=== PATIENT | male | born 1990 | race African-American/Black ===

== ENCOUNTER 2017-01-23 17:18 | Emergency (ER) | payer MEDICAID, OTHER ==
[~2017-01-23] VITALS: Ht 180.3 cm; Wt 79.4 kg
[~2017-01-23 17:18] MED LIST: CYCLOBENZAPRINE10 M7 PO; KEPPRA1000 MG PO; RYTHMOL225 MG PO
[2017-01-23 18:19] VITALS: BP 153/81
--- NOTE | 2017-01-23 19:18 | NUR ---
PT TAKEN TO BED 1
--- NOTE | 2017-01-23 19:22 | NUR ---
Dr. Rodrigues evaluating patient at bedside.
[2017-01-23] MEDS ORDERED: NACL 0.9% 1,000 ML IV SCH (19:27)
[2017-01-23] MEDS ORDERED: ONDANSETRON 4 MG/2 ML VIAL IVP ONE (19:30)
[2017-01-23] MEDS ORDERED: HYDROmorphone 1 MG/ML AMP IVP ONE ×2 (19:40→21:15)
[2017-01-23] MEDS ORDERED: HYDROmorphone 1 MG/ML AMP ONE (19:42)
--- NOTE | 2017-01-23 19:43 | NUR ---
PT TAKEN TO CT
--- NOTE | 2017-01-23 19:45 | NUR ---
PATIENT PRESENTS TO ED WITH LBP . PT STATES HE HAS HAD THE SHARP, CONSTANT PAIN SINCE THIS MORNING . DENIES N/V/D; SKIN IS PINK/WARM/DRY; AAOX4 WITH EVEN AND STEADY GAIT; LUNGS CLEAR BL; HR EVEN AND REGULAR; PT DENIES ANY FEVER, CP, SOB, OR COUGH AT THIS TIME; PATIENT STATES PAIN OF 10/10 AT THIS TIME; VSS; PATIENT POSITIONED FOR COMFORT; HOB ELEVATED; BEDRAILS UP X2; BED DOWN. ER MD MADE AWARE OF PT STATUS.
[2017-01-23] MEDS ORDERED: KCL 20 MEQ/WATER INJ PREMIX 200 ML IV ONE (20:20)
--- NOTE | 2017-01-23 20:51 | NUR ---
Patient appears to be resting comfortably in bed. Vital Signs within normal limits. Respirations even and unlabored.
--- NOTE | 2017-01-23 22:54 | NUR ---
PT GIVEN ORANGE JUICE. RESTING COMFORTABLY IN BED. REPORTING NO PAIN AT THIS TIME. WILL CONTINUE TO MONITOR
[2017-01-23 23:13] VITALS: BP 133/90
--- NOTE | 2017-01-23 23:13 | NUR ---
Patient discharged with v/s stable. Written and verbal after care instructions given and explained. Patient alert, oriented and verbalized understanding of instructions. Ambulatory with steady gait. All questions addressed prior to discharge. ID band removed. Patient advised to follow up with PMD. Rx of DOXYCYCLINE 100MG PO BID, TYLENOL WITH CODEINE NO.3 AND ZOFRAN given. Patient educated on indication of medication including possible reaction and side effects. Opportunity to ask questions provided and answered. PT STATES HE HAS A RIDE HOME BY FAMILY MEMBER
== END 2017-01-23 23:13 | disposition home or self-care (01) ==
LOC: MED 17:18
DX: E87.6 Hypokalemia (principal); E86.0 Dehydration; F12.10 Cannabis abuse, uncomplicated; F10.10 Alcohol abuse, uncomplicated; Y90.6 Blood alcohol level of 120-199 mg/100 ml; R03.0 Elevated blood-pressure reading, without diagnosis of hypertension; Z90.89 Acquired absence of other organs
CPT/HCPCS: 36415; 74176; 80048; 80053; 80305; 81001; 82150; 82553; 83690; 83880; 84484; 85025; 85610; 85730; 93005; 96361; 96365; 96366; 96375; 99285; G0482; J1170; J2405; J7030